=== PATIENT | female | born 1990 | race Caucasian/White ===

== ENCOUNTER → 2021-06-21 | Outpatient (REF) | payer OTHER ==
[~2021-06-21] MED LIST: EXTR500C4 PO; MOTR200T44 PO; PRENTAB55 PO
== END ==
LOC: M LAB REF 15:33
PROVIDERS: ATTEND Physician Assistant
DX: J00 Acute nasopharyngitis [common cold] (principal)

== ENCOUNTER 2021-12-05 13:01 | Emergency (ER) | payer OTHER ==
[~2021-12-05] VITALS: Ht 167.6 cm; Wt 91.5 kg
[2021-12-05] MEDS ORDERED: ZOLO25TA (13:12)
[2021-12-05] MEDS ORDERED: pamprin (13:40)
[2021-12-05] MEDS ORDERED: ACETAMINOPHEN 325 MG TAB PO ONE (15:25)
[2021-12-05 17:03] VITALS: BP 126/79
== END 2021-12-05 17:08 | disposition home or self-care (01) ==
LOC: M ED 13:01
DX: S00.83XA Contusion of other part of head, initial encounter (principal); I34.0 Nonrheumatic mitral (valve) insufficiency; W01.0XXA Fall on same level from slipping, tripping and stumbling without subsequent striking against object, initial encounter; Y92.9 Unspecified place or not applicable; Y93.9 Activity, unspecified; Y99.9 Unspecified external cause status